=== PATIENT | male | born 1990 | race Caucasian/White ===

== ENCOUNTER 2017-01-08 09:56 | Emergency (ER) | payer OTHER ==
[~2017-01-08] VITALS: Ht 182.9 cm; Wt 99.8 kg
[2017-01-08 10:15] VITALS: BP 117/77
--- NOTE | 2017-01-08 10:15 | NUR ---
Patient ambulated to bed 02.
--- NOTE | 2017-01-08 10:19 | NUR ---
PT PRESENTS TO ER W/C/O SORE THROAT AND BODY ACHES X3 DAYS.PT STATES HE TOOK NIGHTQUIL AND SUDAFED BUT DIDN'T HELP.PT DENIES CP/SOB/FEVER/COUGH/RUNNY NOSE/N/V/D AT THIS TIME.BREATHING IS UNLABORED W/ SYMMETRICAL CHEST EXPANSION; DENIES ANY MEDICAL HX.PT IS AAOX4.NO ACUTE DISTRESS NOTED AT THIS TIME.HOB ELEVATED;NEEDS ATTENDED;SAFETY PREACUTION INSTITUTED; MADE AWARE OF PT'S CONDITION.
--- NOTE | 2017-01-08 10:30 | NUR ---
ER MD DR. ASKEW EVALUATING PT AT BEDSIDE.
--- NOTE | 2017-01-08 10:32 | NUR ---
DR ASKEW AT BEDSIDE
--- NOTE | 2017-01-08 10:40 | NUR ---
PT LYING ON BED;GIRLFRIEND AT BEDSIDE;NO ACUTE DISTRESS NOTED AT THIS TIME.WILL CONTINUE TO MONITOR PT.
--- NOTE | 2017-01-08 10:50 | NUR ---
Patient discharged with v/s stable. Written and verbal after care instructions given and explained. Patient alert, oriented and verbalized understanding of instructions. Ambulatory with steady gait. All questions addressed prior to discharge. ID band removed. Patient advised to follow up with PMD.Opportunity to ask questions provided and answered.ADVISED PT TO TAKE VITAMIN C TO BOOST IMMUNE SYSTEM AND INCREASE FLUID INTAKE.
[2017-01-08 10:52] VITALS: BP 134/72
== END 2017-01-08 10:50 | disposition home or self-care (01) ==
LOC: MED 09:56
DX: J02.9 Acute pharyngitis, unspecified (principal)

== ENCOUNTER 2017-01-09 19:44 | Emergency (ER) | payer OTHER ==
[~2017-01-09] VITALS: Ht 182.9 cm; Wt 99.8 kg
[2017-01-09 19:48] VITALS: BP 139/76
--- NOTE | 2017-01-09 23:07 | NUR ---
TO ER BED 7
--- NOTE | 2017-01-09 23:13 | NUR ---
PT IS 26Y/M PRESENT TO ER C/O SORE THROAT AND MOUTH SORES x 6 DAYS.
--- NOTE | 2017-01-09 23:31 | NUR ---
Patient being evaluated by DR. GONZALES at bedside.
--- NOTE | 2017-01-09 23:55 | NUR ---
Patient discharged with v/s stable. Written and verbal after care instructions given and explained. Patient alert, oriented and verbalized understanding of instructions. Ambulatory with steady gait. All questions addressed prior to discharge. ID band removed. Patient advised to follow up with PMD. Rx of AMOXICILLIN 500MG PO, LIDOCAINE HYDROCHLORIDE 2% VISCOUS SOLUTION 1ML, MOTRIN 800MG PO given. Patient educated on indication of medication including possible reaction and side effects. Opportunity to ask questions provided and answered.
[2017-01-09 23:56] VITALS: BP 129/71
== END 2017-01-09 23:55 | disposition home or self-care (01) ==
LOC: MED 19:44
DX: J03.90 Acute tonsillitis, unspecified (principal)

== ENCOUNTER 2017-02-02 06:50 | Emergency (ER) | payer OTHER ==
[~2017-02-02] VITALS: Ht 182.9 cm; Wt 90.7 kg
[2017-02-02 06:52] VITALS: BP 109/65
--- NOTE | 2017-02-02 07:22 | NUR ---
Patient ambulated to bed 4. RN evaluating patient at bedside.
--- NOTE | 2017-02-02 07:24 | NUR ---
SORETHROAT,FOR 3 DAYS, CHILLS AND BODYACHES; DENIES N/V/D; SKIN IS PINK/WARM/DRY; AAOX4 WITH EVEN AND STEADY GAIT; LUNGS CLEAR BL; HR EVEN AND REGULAR; PT DENIES ANY FEVER, CP, SOB, OR COUGH AT THIS TIME; PATIENT STATES PAIN OF 8/10 AT THIS TIME; VSS; PATIENT POSITIONED FOR COMFORT; HOB ELEVATED; BEDRAILS UP X2; BED DOWN. ER MD MADE AWARE OF PT STATUS.
--- NOTE | 2017-02-02 08:33 | NUR ---
AAO PT BEING ASSESS BY DR GONZALES AT BEDSIDE
[2017-02-02] MEDS ORDERED: CLINDAMYCIN 600 MG/4 ML VIAL IM ONE (08:35)
[2017-02-02 09:16] VITALS: BP 125/70
--- NOTE | 2017-02-02 09:16 | NUR ---
Patient discharged with v/s stable. Written and verbal after care instructions given and explained. Patient alert, oriented and verbalized understanding of instructions. Ambulatory with steady gait. All questions addressed prior to discharge. ID band removed. Patient advised to follow up with PMD. Rx of MOTRIN, LIDOCAINE, AUGENTIN given. Patient educated on indication of medication including possible reaction and side effects. Opportunity to ask questions provided and answered.
== END 2017-02-02 09:16 | disposition home or self-care (01) ==
LOC: MED 06:50
DX: J03.90 Acute tonsillitis, unspecified (principal)
CPT/HCPCS: 96372; 99283; J3490

== ENCOUNTER 2021-05-24 08:48 | Emergency (ER) | payer SELFPAY ==
[~2021-05-24] VITALS: Ht 188 cm; Wt 95.3 kg
[2021-05-24 08:54] VITALS: BP 139/82
[2021-05-24] MEDS ORDERED: KETOROLAC 60 MG/2 ML VIAL IM ONE (09:00)
--- NOTE | 2021-05-24 09:31 | NUR ---
DR PITTS AT BEDSIDE EXAMINING PT
--- NOTE | 2021-05-24 09:40 | NUR ---
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 PAIN IS 5/10 BUT GETS UP TO A 10/10. NO SWELLING OR REDNESS NOTED. DENIES ANY RECENT INJURY, NO DEFORMITY. NO PMH NKDA
[2021-05-24] MEDS ORDERED: ACET-8386 PO (09:49)
[2021-05-24] MEDS ORDERED: IBUP-2213 PO (09:49)
[2021-05-24 10:15] VITALS: BP 139/82
--- NOTE | 2021-05-24 10:15 | NUR ---
Patient discharged with v/s stable. Written and verbal after care instructions given and explained. Patient alert, oriented and verbalized understanding of instructions. Ambulatory with steady gait. All questions addressed prior to discharge. ID band removed. Patient advised to follow up with PMD. Rx of [place] and Ibuprofen given. Patient educated on indication of medication including possible reaction and side effects. Opportunity to ask questions provided and answered.
== END 2021-05-24 10:15 | disposition home or self-care (01) ==
LOC: MED 08:48
DX: G89.29 Other chronic pain (principal); M25.571 Pain in right ankle and joints of right foot
CPT/HCPCS: 96372; 99283; J1885